=== PATIENT | female | born 1995 | race Caucasian/White ===

== ENCOUNTER 2016-09-09 22:20 | Emergency (ER) | payer OTHER ==
[~2016-09-09] VITALS: Ht 162.6 cm; Wt 105.3 kg
[~2016-09-09 22:20] MED LIST: ABILIFY DISCMEL15 MG PO; ABILIFY2 MG PO; ABILIFY20 MG PO; ABILIFY5 MG; ARTANE2 MG PO; ATARAX,VISTARIL25 MG; HYDROXYZINE HCL25 MG PO; LAMICTAL ODT200 MG PO; LAMICTAL100 MG PO; LAMICTAL25 MG PO; LAMOTRIGINE200 MG; NUVARING VAGIN1 EACH VG; PROZAC10 MG PO; PROZAC20 MG PO; ZOFRAN ODT4 MG PO
[2016-09-09 23:01] LABS: ADD MIUA? YES; BILIRUBIN NEGATIVE; BLOOD NEGATIVE; COLOR YELLOW ((YELLOW)); GLUCOSE (STRIP) NEGATIVE; KETONES NEGATIVE; LEUKOCYTES NEGATIVE; NITRITE NEGATIVE; PROTEIN (STRIP) 30; SPECIFIC GRAVITY 1.018 (1.000-1.030); UROBILINOGEN 0.2 MG/DL (0.2-1.0)
[2016-09-09 23:10] LABS: AMPHETAMINE NEGATIVE (500 ng/mL); BARBITURATES NEGATIVE (200 ng/mL); BENZODIAZEPINES NEGATIVE (150 ng/mL); COCAINE NEGATIVE (150 ng/mL); METHADONE NEGATIVE (200 ng/mL); METHAMPHETAMINE NEGATIVE (500 ng/mL); OPIATES (MORPHINE) NEGATIVE (100 ng/mL); OXYCODONE NEGATIVE (100 ng/mL); PHENCYCLIDINE NEGATIVE (25 ng/mL); PROPOXYPHENE NEGATIVE (300 ng/mL); THC CANNABINOIDS NEGATIVE (50 ng/mL); TRICYCLIC ANTIDEPRESSANTS NEGATIVE (300 ng/mL)
[2016-09-09 23:11] LABS: INTERNAL CONTROLS VALID? YES
[2016-09-09 23:16] LABS: MCH 30.1 PG (29.0-34.0); MCV 88.4 FL (83-99); MEAN PLAT.VOLUME 9.4 uM^3 (9.5-12.4); PLATELET COUNT 335 K/uL (156-360); RBC DIS.WIDTH-CV 11.7 % (11.8-14.6); RBC DIS.WIDTH-SD 37.4 % (39-53); RED BLOOD COUNT 5.09 M/uL (3.80-5.20); WHITE BLOOD COUNT 10.6 K/uL (4.1-10.2)
[2016-09-09 23:22] LABS: CASTS NONE SEEN /LPF; CRYSTALS NONE SEEN; EPITHELIAL CELLS RARE /HPF; MUCUS NONE SEEN /LPF; RED BLOOD CELLS 0-5 /HPF (0-5); UCUL ADDED? NO; WHITE BLOOD CELLS 0-5 /HPF (0-5)
[2016-09-09 23:23] LABS: BACTERIA 3+ /HPF
[2016-09-09 23:41] LABS: CHLORIDE 110 mEq/L (99-109); POTASSIUM 3.8 mEq/L (3.7-5.4); SODIUM 141 mEq/L (136-147)
[2016-09-09 23:43] LABS: GLUCOSE 154 mg/dL (70-99)
[2016-09-09 23:44] LABS: ANION GAP 10 MEQ/L (2-14)
[2016-09-09 23:46] LABS: SERUM ETHYL ALCOHOL < 10 mg/dL
[2016-09-09 23:47] LABS: GFR ESTIMATE (CALCULATED) > 59 mL/min/
[2016-09-09 23:48] LABS: UREA NITROGEN (BUN) 12 mg/dL (9-23)
[2016-09-09 23:55] LABS: QUANTITATIVE HCG < 4.0 MIU/ML
[2016-09-10 01:12] VITALS: BP 122/84
== END 2016-09-10 01:17 | disposition home or self-care (01) ==
LOC: EME 22:20
PROVIDERS: Emergency Medicine
DX: F32.9 Major depressive disorder, single episode, unspecified (principal); N39.0 Urinary tract infection, site not specified
CPT/HCPCS: 80048; 81003; 84702; 85027; 90839; 99281; 99285; G0480